=== PATIENT | female | born 1960 | race Caucasian/White ===

== ENCOUNTER 2020-02-10 13:45 | Emergency (ER) | payer BC | END 2020-02-10 14:06 | disposition home or self-care (01) | LOC: BURERS 13:45 | DX: S10.11XA Abrasion of throat, initial encounter (principal); K22.8 Other specified diseases of esophagus; E11.9 Type 2 diabetes mellitus without complications; I10 Essential (primary) hypertension; F32.9 Major depressive disorder, single episode, unspecified; X58.XXXA Exposure to other specified factors, initial encounter | CPT/HCPCS: 99283 ==